=== PATIENT | male | born 1975 | race Caucasian/White ===

== ENCOUNTER 2021-12-26 05:53 | Emergency (ER) | payer OTHER ==
[~2021-12-26] VITALS: Ht 167.6 cm; Wt 79.4 kg
[2021-12-26 06:19] LABS: HEMOGLOBIN 8.2 gm/dl (14.0-17.5); RED BLOOD COUNT 2.94 M/UL (4.20-5.50)
[2021-12-26 06:31] LABS: BUN/CREATININE RATIO 44 (0-10)
[2021-12-26 10:40] LABS: HEMOGLOBIN 8.1 gm/dl (14.0-17.5)
== END 2021-12-26 13:45 | disposition other institution (70) ==
LOC: ER1 05:53
PROVIDERS: Family Medicine; Physician Assistant
DX: K92.2 Gastrointestinal hemorrhage, unspecified (principal); R06.02 Shortness of breath; E11.9 Type 2 diabetes mellitus without complications; Z79.4 Long term (current) use of insulin; Z88.0 Allergy status to penicillin; Z51.81 Encounter for therapeutic drug level monitoring
CPT/HCPCS: 80053; 81001; 82272; 82550; 82553; 83690; 84484; 85014; 85018; 85025; 85610; 86850; 86900; 86901; 87040; 93005; 96361; 96374; 96375; 96376; 99285; C9113; J2354; J2405; Q9967